=== PATIENT | male | born 1970 | race Caucasian/White ===

== ENCOUNTER 2021-10-21 08:32 | Outpatient (CLI) | payer BC | END 2021-10-21 08:33 | disposition home or self-care (01) | LOC: CSHMRI 08:32 | PROVIDERS: ATTEND Otolaryngology Plastic Surgery within the Head & Neck | DX: H90.3 Sensorineural hearing loss, bilateral (principal); H74.92 Unspecified disorder of left middle ear and mastoid; G93.9 Disorder of brain, unspecified | CPT/HCPCS: 70553 ==